=== PATIENT | male | born 1970 ===

== ENCOUNTER 2018-09-21 01:30 | Emergency (ER) | payer SELFPAY ==
[2018-09-21 01:31] VITALS: BMI 30.1
[2018-09-21] MEDS ORDERED: Bacitracin 500 Units/gm Oint Foilpak UD TOP STA (01:52)
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
[2018-09-21] MEDS ORDERED: Insulin Regular 100 units/ml SC STA (05:40)
--- NOTE | 2018-09-21 08:36 | CT ---
Date of service: 09/21/2018 PROCEDURE: CT HEAD WITHOUT CONTRAST. HISTORY: head injury, etoh COMPARISON: None available. TECHNIQUE: Axial computed tomography images were obtained through the head/brain without intravenous contrast. Radiation dose: Total exam DLP = 1439.9 mGy-cm. This CT exam was performed using one or more of the following dose reduction techniques: Automated exposure control, adjustment of the mA and/or kV according to patient size, and/or use of iterative reconstruction technique. FINDINGS: HEMORRHAGE: No intracranial hemorrhage. BRAIN: No mass effect or edema. No atrophy or chronic microvascular ischemic changes. VENTRICLES: Unremarkable. No hydrocephalus. CALVARIUM: Unremarkable. PARANASAL SINUSES: Unremarkable as visualized. No significant inflammatory changes. MASTOID AIR CELLS: Unremarkable as visualized. No inflammatory changes. OTHER FINDINGS: None. IMPRESSION: Normal CT of the Head.
--- NOTE | 2018-09-21 08:47 | ED PDOC ---
- ECG O2 Sat by Pulse Oximetry: 100 (RA) - Progress Re-evaluation Time: 08:45 Condition: Improved (Awake alert oriented x3 no focal neuro deficits) Disposition - Clinical Impression Clinical Impression: Hyperglycemia, Alcohol intoxication, Medical clearance for incarceration - POA Present On Arrival: None - Disposition Disposition: Discharged/Transfer to Law Enforcement Disposition Time: 09:08 Condition: STABLE Additional Instructions: Medically and psychiatrically stable for incarceration Instructions: Hyperglycemia, Adult, Alcohol Abuse and Alcoholism (DC), General (DC) Forms: Vestiage (Nepalese)
[2018-09-21 09:28] VITALS: BP 134/83; PULSE 100; RESP 19; TEMP 98.7
[2018-09-22 02:02] VITALS: O2SAT 100
== END 2018-09-21 11:07 | disposition home or self-care (01) ==
LOC: H.ER 01:30
DX: F10.129 Alcohol abuse with intoxication, unspecified (principal); E11.65 Type 2 diabetes mellitus with hyperglycemia; E78.00 Pure hypercholesterolemia, unspecified; I10 Essential (primary) hypertension; Z79.84 Long term (current) use of oral hypoglycemic drugs; S01.81XA Laceration without foreign body of other part of head, initial encounter; W22.8XXA Striking against or struck by other objects, initial encounter; Y92.89 Other specified places as the place of occurrence of the external cause
CPT/HCPCS: 70450; 82948; 96372; 99283; J1630; J2060